=== PATIENT | female | born 1970 | race Caucasian/White ===

== ENCOUNTER 2022-06-15 11:05 | Outpatient (CLI) | payer BC | END 2022-06-15 11:06 | disposition home or self-care (01) | LOC: RAD 11:05 | PROVIDERS: ATTEND Nurse Practitioner Family | DX: M79.605 Pain in left leg (principal); E03.9 Hypothyroidism, unspecified; R05.3 Chronic cough; U09.9 Post COVID-19 condition, unspecified; M25.473 Effusion, unspecified ankle ==

== ENCOUNTER 2022-07-06 09:25 | Outpatient (CLI) | payer BC | END 2022-07-06 09:26 | disposition home or self-care (01) | LOC: ULT 09:25 | PROVIDERS: ATTEND Nurse Practitioner Family | DX: M79.605 Pain in left leg (principal); M25.472 Effusion, left ankle | CPT/HCPCS: 93923 ==